=== PATIENT | female | born 1985 | race Hispanic/Latino ===

== ENCOUNTER 2019-10-15 08:15 | Outpatient (CLI) | payer BC, OTHER ==
--- NOTE | 2019-10-15 11:21 | ULT ---
TRANSABDOMINAL AND TRANSVAGINAL PELVIC ULTRASOUND WITH ELLISON SCALE AND COLOR FLOW AND SPECTRAL DOPPLER IMAGING: Date: 10/15/2019 HISTORY: Left lower quadrant pain. FINDINGS: The uterus measures 9.5 x 5.6 x 5.5 cm with a large pedunculated fibroid measuring 4.6 x 3.6 x 4.3 cm . No endometrial fluid is seen. The endometrium measures 1.0 cm in thickness. The right ovary measures 2.1 x 1.6 x 1.6 cm. The left ovary measures 3.1 x 3.4 x 1.8 cm. Flow is demo nstrated to both ovaries. There is a 2.0 cm cyst in the left ovary. No free fluid is seen in the pelv is. IMPRESSION: Large pedunculated uterine fibroid. POS: [facility]
== END 2019-10-15 08:16 | disposition home or self-care (01) ==
LOC: SCSULT 08:15
PROVIDERS: ATTEND Family Medicine
DX: D25.9 Leiomyoma of uterus, unspecified (principal); R10.32 Left lower quadrant pain
CPT/HCPCS: 76856